=== PATIENT | male | born 1960 | race Caucasian/White ===

== ENCOUNTER 2019-12-03 14:00 | Emergency (ER) | payer SELFPAY ==
[~2019-12-03] VITALS: Ht 175.3 cm; Wt 81.8 kg
[2019-12-03 14:33] VITALS: Ht 175.3 cm; Wt 81.8 kg
[2019-12-03 15:16] VITALS: BP 146/96
== END 2019-12-03 15:18 | disposition home or self-care (01) ==
LOC: D.ER 14:00
DX: F15.10 Other stimulant abuse, uncomplicated (principal); F41.9 Anxiety disorder, unspecified; F60.3 Borderline personality disorder

== ENCOUNTER 2020-03-22 10:20 | Emergency (ER) | payer SELFPAY ==
[2020-03-22 10:32] VITALS: Ht 175.3 cm
[2020-03-22] MEDS ORDERED: VENTOLIN HFA [SP8 GM INH (11:29)
[2020-03-22 19:22] VITALS: BP 132/93
== END 2020-03-22 11:50 | disposition home or self-care (01) ==
LOC: D.ER 10:20
DX: R07.89 Other chest pain (principal); R05 Cough; M54.6 Pain in thoracic spine

== ENCOUNTER 2020-04-25 01:29 | Emergency (ER) | payer SELFPAY ==
[~2020-04-25] VITALS: Ht 175.3 cm; Wt 90.9 kg
[~2020-04-25 01:29] MED LIST: VENTOLIN HFA [SP8 GM INH
[2020-04-25 01:47] VITALS: Ht 175.3 cm; Wt 90.9 kg
[2020-04-25 02:00] LABS: BASOPHILS 0.2 % (0-2); EOSINOPHILS 2.2 % (0-7); HEMATOCRIT 41.2 % (42.0-54.0); IMMATURE GRANULOCYTES 0.2 % (0-5); LYMPHOCYTES 36.3 % (15-50); MCH 31.8 pg (26.0-34.0); MCV 93.6 fL (80.0-100.0); MEAN PLATELET VOLUME 9.8 fL (7.4-10.4); MONOCYTES 8.8 % (2-11); NEUTROPHILS 52.3 % (40-80); PLATELET COUNT 195 10x3/uL (130-400); RDW 13.6 % (11.5-14.5); WBC 4.5 10x3/uL (4.8-10.8)
[2020-04-25 02:12] LABS: CALC OSMOLALITY 264 mosm/kg (275-300); CALCIUM 8.9 mg/dL (8.5-10.1); CARBON DIOXIDE 27.9 mmol/L (21.0-32.0); CHLORIDE - SERUM 99 mmol/L (98-107); GLUCOSE 101 mg/dL (74-106); POTASSIUM - SERUM 3.6 mmol/L (3.5-5.1); SODIUM 133 mmol/L (136-145); UREA NITROGEN 9 mg/dL (7-18); eGFR NON AFRICAN AMERICAN 81 mL/min (90-120)
[2020-04-25 02:20] LABS: ALBUMIN 3.7 g/dL (3.4-5.0); ALKALINE PHOSPHATASE 140 U/L (30-120); ALT (SGPT) 78 U/L (10-68); BILIRUBIN - TOTAL 0.27 mg/dL (0.2-1.3); MAGNESIUM - SERUM 2.1 mg/dL (1.8-2.4)
[2020-04-25 02:30] LABS: BILIRUBIN NEGATIVE (NEGATIVE); KETONE NEGATIVE (NEGATIVE); NITRITE NEGATIVE (NEGATIVE); UROBILINOGEN NORMAL mg/dL (< 2)
[2020-04-25 02:41] LABS: UDS - AMPHET POSITIVE QUAL (NEGATIVE); UDS - BARB NEGATIVE QUAL (NEGATIVE); UDS - BENZO NEGATIVE QUAL (NEGATIVE); UDS - COCAINE NEGATIVE QUAL (NEGATIVE); UDS - OPIATE NEGATIVE QUAL (NEGATIVE); UDS - PCP NEGATIVE QUAL (NEGATIVE); UDS - THC NEGATIVE QUAL (NEGATIVE)
[2020-04-25 05:16] VITALS: BP 148/87
== END 2020-04-25 05:20 | disposition home or self-care (01) ==
LOC: D.ER 01:29
PROVIDERS: Emergency Medicine
DX: F10.10 Alcohol abuse, uncomplicated (principal); Y90.0 Blood alcohol level of less than 20 mg/100 ml; F60.3 Borderline personality disorder; F15.10 Other stimulant abuse, uncomplicated

== ENCOUNTER 2020-05-02 12:45 | Emergency (ER) | payer SELFPAY ==
[~2020-05-02] VITALS: Ht 175.3 cm; Wt 113.6 kg
[2020-05-02 12:59] VITALS: Ht 175.3 cm; Wt 113.6 kg
[2020-05-02 13:22] LABS: BILIRUBIN NEGATIVE (NEGATIVE); KETONE NEGATIVE (NEGATIVE); NITRITE NEGATIVE (NEGATIVE); UROBILINOGEN NORMAL mg/dL (< 2)
[2020-05-02 13:23] LABS: BACTERIA FEW HPF (NONE SEEN); WHITE CELLS - URINE 0-5 HPF (0-1)
[2020-05-02 13:30] LABS: UDS - AMPHET POSITIVE QUAL (NEGATIVE); UDS - BARB NEGATIVE QUAL (NEGATIVE); UDS - BENZO NEGATIVE QUAL (NEGATIVE); UDS - COCAINE NEGATIVE QUAL (NEGATIVE); UDS - OPIATE NEGATIVE QUAL (NEGATIVE); UDS - PCP NEGATIVE QUAL (NEGATIVE); UDS - THC NEGATIVE QUAL (NEGATIVE)
[2020-05-02 13:38] LABS: BASOPHILS 0.4 % (0-2); CALC OSMOLALITY 268 mosm/kg (275-300); CALCIUM 9.2 mg/dL (8.5-10.1); CARBON DIOXIDE 20.5 mmol/L (21.0-32.0); CHLORIDE - SERUM 98 mmol/L (98-107); CREATININE - SERUM 1.2 mg/dL (0.6-1.3); EOSINOPHILS 1.7 % (0-7); GLUCOSE 138 mg/dL (74-106); HEMOGLOBIN 14.1 g/dL (13.5-17.5); IMMATURE GRANULOCYTES 0.2 % (0-5); INR 0.98 (0.85-1.17); LYMPHOCYTES 44.1 % (15-50); MCH 31.5 pg (26.0-34.0); MCHC 34.4 g/dL (31.0-37.0); MCV 91.7 fL (80.0-100.0); MEAN PLATELET VOLUME 10.5 fL (7.4-10.4); MONOCYTES 11.1 % (2-11); NEUTROPHILS 42.5 % (40-80); POTASSIUM - SERUM 3.4 mmol/L (3.5-5.1); RBC 4.47 10x6/uL (4.20-6.10); RDW 13.4 % (11.5-14.5); SODIUM 134 mmol/L (136-145); UREA NITROGEN 11 mg/dL (7-18); WBC 4.8 10x3/uL (4.8-10.8); eGFR NON AFRICAN AMERICAN 66 mL/min (90-120)
[2020-05-02 13:40] LABS: PLATELET COUNT 241 10x3/uL (130-400)
[2020-05-02 13:52] LABS: ALBUMIN 3.8 g/dL (3.4-5.0); ALKALINE PHOSPHATASE 141 U/L (30-120); ALT (SGPT) 78 U/L (10-68); BILIRUBIN - TOTAL 0.28 mg/dL (0.2-1.3); CKMB 13.9 U/L (0.0-3.6); CREATINE KINASE 547 UL (21-232); PROTEIN - SERUM 7.9 g/dL (6.4-8.2); TROPONIN-I < 0.017 ng/mL (0.000-0.060)
[2020-05-02 17:29] VITALS: BP 153/113
== END 2020-05-02 17:30 | disposition home or self-care (01) ==
LOC: D.ER 12:45
PROVIDERS: Family Medicine
DX: F15.129 Other stimulant abuse with intoxication, unspecified (principal); R07.9 Chest pain, unspecified

== ENCOUNTER 2020-05-07 11:27 | Emergency (ER) | payer SELFPAY ==
[~2020-05-07] VITALS: Ht 175.3 cm; Wt 90.9 kg
[2020-05-07 11:30] VITALS: BP 161/91; Ht 175.3 cm; Wt 90.9 kg
[2020-05-07 12:31] LABS: NITRITE NEGATIVE (NEGATIVE)
[2020-05-07 12:32] LABS: BILIRUBIN NEGATIVE (NEGATIVE); KETONE NEGATIVE (NEGATIVE); UROBILINOGEN NORMAL mg/dL (< 2)
[2020-05-07 12:41] LABS: UDS - AMPHET POSITIVE QUAL (NEGATIVE); UDS - BARB NEGATIVE QUAL (NEGATIVE); UDS - BENZO NEGATIVE QUAL (NEGATIVE); UDS - COCAINE NEGATIVE QUAL (NEGATIVE); UDS - OPIATE NEGATIVE QUAL (NEGATIVE); UDS - PCP NEGATIVE QUAL (NEGATIVE); UDS - THC POSITIVE QUAL (NEGATIVE)
[2020-05-07 13:39] LABS: BASOPHILS 0.4 % (0-2); EOSINOPHILS 0.6 % (0-7); HEMATOCRIT 42.9 % (42.0-54.0); HEMOGLOBIN 14.8 g/dL (13.5-17.5); IMMATURE GRANULOCYTES 0.2 % (0-5); LYMPHOCYTES 17.8 % (15-50); MCH 32.2 pg (26.0-34.0); MCHC 34.5 g/dL (31.0-37.0); MCV 93.5 fL (80.0-100.0); MONOCYTES 8.2 % (2-11); NEUTROPHILS 72.8 % (40-80); PLATELET COUNT 214 10x3/uL (130-400); RBC 4.59 10x6/uL (4.20-6.10); RDW 13.6 % (11.5-14.5); WBC 5.1 10x3/uL (4.8-10.8)
[2020-05-07 13:50] LABS: ANION GAP 10.4 mmol/L (8-16); CALCIUM 9.2 mg/dL (8.5-10.1); CARBON DIOXIDE 30.7 mmol/L (21.0-32.0); CREATININE - SERUM 1.1 mg/dL (0.6-1.3); POTASSIUM - SERUM 4.1 mmol/L (3.5-5.1)
[2020-05-07 13:56] LABS: BILIRUBIN - TOTAL 0.37 mg/dL (0.2-1.3); MAGNESIUM - SERUM 2.1 mg/dL (1.8-2.4); PROTEIN - SERUM 8.1 g/dL (6.4-8.2)
== END 2020-05-07 15:38 | disposition home or self-care (01) ==
LOC: D.ER 11:27
PROVIDERS: Family Medicine
DX: F41.9 Anxiety disorder, unspecified (principal)

== ENCOUNTER 2020-12-27 18:17 | Emergency (ER) | payer SELFPAY ==
[~2020-12-27] VITALS: Ht 175.3 cm; Wt 97.7 kg
[2020-12-27 18:30] VITALS: Ht 175.3 cm; Wt 97.7 kg
[2020-12-27 18:54] LABS: BASOPHILS 1.1 % (0-2); EOSINOPHILS 1.8 % (0-7); HEMATOCRIT 40.3 % (42.0-54.0); HEMOGLOBIN 13.4 g/dL (13.5-17.5); LYMPHOCYTES 38.2 % (15-50); MCH 30.7 pg (26.0-34.0); MCHC 33.3 g/dL (31.0-37.0); MCV 92.2 fL (80.0-100.0); MONOCYTES 8.2 % (2-11); NEUTROPHILS 50.7 % (40-80); RBC 4.37 10x6/uL (4.20-6.10); RDW 13.6 % (11.5-14.5); WBC 4.4 10x3/uL (4.8-10.8)
[2020-12-27 18:58] LABS: PLATELET COUNT 240 10x3/uL (130-400)
[2020-12-27 19:11] LABS: CALC OSMOLALITY 273 mosm/kg (275-300); CALCIUM 8.2 mg/dL (8.5-10.1); CARBON DIOXIDE 24.7 mmol/L (21.0-32.0); CHLORIDE - SERUM 103 mmol/L (98-107); CREATININE - SERUM 0.7 mg/dL (0.6-1.3); GLUCOSE 113 mg/dL (74-106); POTASSIUM - SERUM 3.8 mmol/L (3.5-5.1); SODIUM 137 mmol/L (136-145); UREA NITROGEN 10 mg/dL (7-18); eGFR NON AFRICAN AMERICAN > 90 mL/min (90-120)
[2020-12-27 19:16] LABS: ALBUMIN 3.7 g/dL (3.4-5.0); ALKALINE PHOSPHATASE 119 U/L (30-120); ALT (SGPT) 95 U/L (10-68); BILIRUBIN - TOTAL 0.31 mg/dL (0.2-1.3); MAGNESIUM - SERUM 2.2 mg/dL (1.8-2.4); PROTEIN - SERUM 7.7 g/dL (6.4-8.2)
[2020-12-27 19:25] LABS: BILIRUBIN NEGATIVE (NEGATIVE); KETONE NEGATIVE (NEGATIVE); NITRITE NEGATIVE (NEGATIVE); UROBILINOGEN NORMAL mg/dL (< 2)
[2020-12-27 19:30] LABS: BACTERIA FEW HPF (NONE SEEN); SQUAMOUS EPITHELIAL NONE SEEN HPF (0-4); WHITE CELLS - URINE 0-5 HPF (0-1)
[2020-12-27 19:34] LABS: UDS - AMPHET POSITIVE QUAL (NEGATIVE); UDS - BARB NEGATIVE QUAL (NEGATIVE); UDS - BENZO NEGATIVE QUAL (NEGATIVE); UDS - COCAINE NEGATIVE QUAL (NEGATIVE); UDS - OPIATE POSITIVE QUAL (NEGATIVE); UDS - PCP NEGATIVE QUAL (NEGATIVE); UDS - THC POSITIVE QUAL (NEGATIVE)
[2020-12-28 04:46] VITALS: BP 155/89
== END 2020-12-28 04:47 | disposition home or self-care (01) ==
LOC: D.ER 18:17
PROVIDERS: Family Medicine
DX: R45.850 Homicidal ideations (principal); R45.851 Suicidal ideations; F15.10 Other stimulant abuse, uncomplicated; R74.01 Elevation of levels of liver transaminase levels; F11.10 Opioid abuse, uncomplicated; F10.10 Alcohol abuse, uncomplicated; Y90.6 Blood alcohol level of 120-199 mg/100 ml; I10 Essential (primary) hypertension; Z72.0 Tobacco use

== ENCOUNTER 2021-01-08 04:41 | Emergency (ER) | payer SELFPAY ==
[~2021-01-08] VITALS: Ht 175.3 cm; Wt 86.4 kg
[2021-01-08 04:42] VITALS: Ht 175.3 cm; Wt 86.4 kg
[2021-01-08 05:36] LABS: BASOPHILS 0.8 % (0-2); EOSINOPHILS 0.4 % (0-7); HEMATOCRIT 40.6 % (42.0-54.0); HEMOGLOBIN 13.5 g/dL (13.5-17.5); LYMPHOCYTES 26.5 % (15-50); MCH 30.8 pg (26.0-34.0); MCHC 33.4 g/dL (31.0-37.0); MCV 92.3 fL (80.0-100.0); MEAN PLATELET VOLUME 8.6 fL (7.4-10.4); MONOCYTES 8.9 % (2-11); NEUTROPHILS 63.4 % (40-80); PLATELET COUNT 213 10x3/uL (130-400); RBC 4.39 10x6/uL (4.20-6.10); RDW 13.7 % (11.5-14.5); WBC 5.2 10x3/uL (4.8-10.8)
[2021-01-08 05:50] LABS: CALC OSMOLALITY 279 mosm/kg (275-300); CALCIUM 9.3 mg/dL (8.5-10.1); CARBON DIOXIDE 27.2 mmol/L (21.0-32.0); CHLORIDE - SERUM 103 mmol/L (98-107); CREATININE - SERUM 0.9 mg/dL (0.6-1.3); GLUCOSE 102 mg/dL (74-106); POTASSIUM - SERUM 3.5 mmol/L (3.5-5.1); SODIUM 141 mmol/L (136-145); UREA NITROGEN 9 mg/dL (7-18); eGFR NON AFRICAN AMERICAN > 90 mL/min (90-120)
[2021-01-08 06:15] LABS: BILIRUBIN NEGATIVE (NEGATIVE); KETONE NEGATIVE (NEGATIVE); NITRITE NEGATIVE (NEGATIVE); UROBILINOGEN NORMAL mg/dL (< 2)
[2021-01-08 06:16] LABS: ALBUMIN 4.2 g/dL (3.4-5.0); ALKALINE PHOSPHATASE 112 U/L (30-120); ALT (SGPT) 93 U/L (10-68); BILIRUBIN - TOTAL 0.61 mg/dL (0.2-1.3); CKMB 16.3 U/L (0.0-3.6); CREATINE KINASE 700 UL (21-232); MAGNESIUM - SERUM 2.1 mg/dL (1.8-2.4); PRO BNP 128 pg/mL (0-125); PROTEIN - SERUM 8.1 g/dL (6.4-8.2); THYROID STIMULATING HORMONE 5.99 uIU/mL (0.36-3.74); TROPONIN-I < 0.017 ng/mL (0.000-0.060)
[2021-01-08 06:26] LABS: UDS - AMPHET POSITIVE QUAL (NEGATIVE); UDS - BARB NEGATIVE QUAL (NEGATIVE); UDS - BENZO POSITIVE QUAL (NEGATIVE); UDS - COCAINE NEGATIVE QUAL (NEGATIVE); UDS - OPIATE NEGATIVE QUAL (NEGATIVE); UDS - PCP NEGATIVE QUAL (NEGATIVE); UDS - THC POSITIVE QUAL (NEGATIVE)
[2021-01-08 08:16] VITALS: BP 134/90
== END 2021-01-08 08:18 | disposition home or self-care (01) ==
LOC: D.ER 04:41
PROVIDERS: Family Medicine
DX: R07.89 Other chest pain (principal); F19.10 Other psychoactive substance abuse, uncomplicated; R79.89 Other specified abnormal findings of blood chemistry; I10 Essential (primary) hypertension; R51.9 Headache, unspecified

== ENCOUNTER 2021-01-15 16:54 | Observation (INO) | payer SELFPAY ==
[~2021-01-15] VITALS: Ht 175.3 cm; Wt 113.6 kg
[2021-01-15 18:01] LABS: BASOPHILS 0.8 % (0-2); HEMATOCRIT 38.7 % (42.0-54.0); LYMPHOCYTES 19.8 % (15-50); MCHC 33.7 g/dL (31.0-37.0); MCV 92.1 fL (80.0-100.0); MEAN PLATELET VOLUME 8.4 fL (7.4-10.4); MONOCYTES 12.1 % (2-11); NEUTROPHILS 66.3 % (40-80); PLATELET COUNT 205 10x3/uL (130-400); WBC 4.5 10x3/uL (4.8-10.8)
[2021-01-15 18:24] LABS: ALBUMIN 3.7 g/dL (3.4-5.0); ALKALINE PHOSPHATASE 92 U/L (30-120); ALT (SGPT) 86 U/L (10-68); BILIRUBIN - TOTAL 0.43 mg/dL (0.2-1.3); CALC OSMOLALITY 278 mosm/kg (275-300); CALCIUM 8.9 mg/dL (8.5-10.1); CHLORIDE - SERUM 103 mmol/L (98-107); CKMB 11.1 U/L (0.0-3.6); CREATINE KINASE 445 UL (21-232); CREATININE - SERUM 0.9 mg/dL (0.6-1.3); GLUCOSE 101 mg/dL (74-106); PROTEIN - SERUM 7.8 g/dL (6.4-8.2); SODIUM 140 mmol/L (136-145); TROPONIN-I < 0.017 ng/mL (0.000-0.060); UREA NITROGEN 12 mg/dL (7-18); eGFR NON AFRICAN AMERICAN > 90 mL/min (90-120)
--- NOTE | 2021-01-15 19:18 | NUR ---
PT REPORT GIVEN TO JÚNIOR AGUAYO
[2021-01-15 19:20] LABS: BACTERIA FEW HPF (<MOD); BILIRUBIN NEGATIVE (NEGATIVE); KETONE NEGATIVE mg/dL (< 1+); NITRITE NEGATIVE (NEGATIVE); UROBILINOGEN 4 mg/dL (< 2); WHITE CELLS - URINE 1 HPF (0-1)
[2021-01-15 19:30] VITALS: BP 148/61
[2021-01-15 19:31] LABS: UDS - AMPHET POSITIVE QUAL (NEGATIVE); UDS - BARB NEGATIVE QUAL (NEGATIVE); UDS - BENZO NEGATIVE QUAL (NEGATIVE); UDS - COCAINE NEGATIVE QUAL (NEGATIVE); UDS - OPIATE NEGATIVE QUAL (NEGATIVE); UDS - PCP NEGATIVE QUAL (NEGATIVE); UDS - THC POSITIVE QUAL (NEGATIVE)
[2021-01-15 20:31] VITALS: BP 137/94
[2021-01-15 21:30] VITALS: BP 144/92
[2021-01-15 21:47] LABS: APTT 29.8 SECONDS (22.8-39.4); INR 1.17 (0.85-1.17); PROTIME 13.8 SECONDS (11.6-15.0)
[2021-01-15 21:48] LABS: D-DIMER-QUANTITATIVE 0.87 ug/mLFEU (0.20-0.54)
[2021-01-15 22:30] VITALS: BP 142/87
[2021-01-15 23:30] VITALS: BP 129/88
[2021-01-16] VITALS (11 sets, daily range): BP systolic 99–133; BP diastolic 67–89; Ht 175.3 cm; Wt 113.6 kg
--- NOTE | 2021-01-16 07:00 | NUR ---
0700: RECEIVED REPORT FROM OLIVIER SCOTT. PT A&OX3, GCS 15, RR EVEN & UNLABORED, NO S/S OF ACUTE DISTRESS NOTED AT THIS TIME, PT STATES NO NEEDS OR CONCERNS, JUST ASKING ABOUT WHEN TO GO TO ROOM AND GET D/C FROM HOSPITAL. WILL CONTINUE TO MONITOR PT AT THIS TIME. 0800: PT GIVEN BREAKFAST TRAY. NO OTHER NEEDS STATED AT THIS TIME, WILL CONTINUE TO MONITOR. 0900: PT RESTING IN ROOM, CALL RN TO BEDSIDE, ASKED ABOUT A PHONE TOOTH CUTTER. TOOTH CUTTER PROVIDED, PT ROOM PHONE PLACED WITHIN PT REACH FOR USE. NO S/S OF ACUTE DISTRESS NOTED AT THIS TIME, WILL CONTINUE TO MONITOR. 0945: PT ASKING ABOUT SNACKS, SNACKS PROVIDED. 1000: PT RESTING IN ROOM AT THIS TIME, NO S/S OF ACUTE DISTRESS NOTED, CALL LIGHT WITHIN REACH, WILL CONTINUE TO MONITOR. 1100: PT CALLED RN TO BEDSIDE, NEEDED UP TO VOID AT THIS TIME. PT AMBULATES WITH A STEADY GAIT. NO S/S OF ACUTE DISTRESS NOTED AT THIS TIME, WILL CONTINUE TO MONITOR.
[2021-01-16 07:22] LABS: BASOPHILS 0.5 % (0-2); EOSINOPHILS 1.9 % (0-7); HEMOGLOBIN 13.5 g/dL (13.5-17.5); LYMPHOCYTES 25.6 % (15-50); MCH 31.3 pg (26.0-34.0); MCHC 33.8 g/dL (31.0-37.0); MCV 92.6 fL (80.0-100.0); MEAN PLATELET VOLUME 8.3 fL (7.4-10.4); PLATELET COUNT 216 10x3/uL (130-400); RBC 4.32 10x6/uL (4.20-6.10); RDW 13.5 % (11.5-14.5); WBC 4.2 10x3/uL (4.8-10.8)
[2021-01-16 07:54] LABS: ALBUMIN 3.5 g/dL (3.4-5.0); ALKALINE PHOSPHATASE 95 U/L (30-120); ALT (SGPT) 82 U/L (10-68); BILIRUBIN - TOTAL 0.33 mg/dL (0.2-1.3); CALC OSMOLALITY 278 mosm/kg (275-300); CALCIUM 8.8 mg/dL (8.5-10.1); CARBON DIOXIDE 28.3 mmol/L (21.0-32.0); CHLORIDE - SERUM 104 mmol/L (98-107); CREATININE - SERUM 0.8 mg/dL (0.6-1.3); GLUCOSE 95 mg/dL (74-106); MAGNESIUM - SERUM 2.2 mg/dL (1.8-2.4); PROTEIN - SERUM 7.5 g/dL (6.4-8.2); SODIUM 140 mmol/L (136-145); TROPONIN-I < 0.017 ng/mL (0.000-0.060); UREA NITROGEN 12 mg/dL (7-18); eGFR NON AFRICAN AMERICAN > 90 mL/min (90-120)
[2021-01-16 07:57] LABS: POTASSIUM - SERUM 3.5 mmol/L (3.5-5.1)
[2021-01-17 09:12] LABS: HEPATITIS C ANTIBODY >11.0 S/CO RAT (0.0-0.9)
--- NOTE | 2021-01-18 13:07 | EC ---
PATIENT:CHANTELLE GUZMAN DATE OF SERVICE: 01/15/21 SEX: M MEDICAL RECORD: [id number] DATE OF : 62 LOCATION:[place] [id number] AGE OF PATIENT: 60 ADMISSION DATE: 01/15/21 REFERRING PHYSICIAN: INTERPRETING PHYSICIAN: JLEANI MIRZA MD ECHOCARDIOGRAM REPORT ECHO CHARGES 4 ECHO COMPLETE Date: 01/16/21 CLINICAL DIAGNOSIS: CP, IVDU ECHOCARDIOGRAPHIC MEASUREMENTS (adult normal given) AC root (d.<3.7cm) 3.4 cm LV Septum d (<1.2 cm> 0.7 cm Valve Excursion 2.1 cm LV Septum (systole) 0.8 cm Left Atria (s.<4.0cm> 3.2 cm LVPW d(<1.2cm) 0.9 cm RV (d.<2.3cm) 3.1 cm LVPW (sytole) 1.2 cm LV diastole(<5.6CM) 4.2 cm MV E-F(>70mm/sec) cm LV systole 3.0 cm LVOT Diameter 1.9 cm MV exc.(>10mm) 1.8 cm Est.ejection fraction (50-75%) % DOPPLER: LVIT cm/sec A 60 cm/sec E 53 cm/sec LA cm/sec RVSP 23 mmHg LVOT 83 cm/sec AOP1/2T m/s Asc. 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 Mirza TAPE# Pericardial Effusion N DATE OF SERVICE: CLINICAL INDICATION: Chest pain. INTERPRETATION: Normal left ventricular chamber size and contractile function with ejection fraction of 55%. FINDINGS: Left atrial chamber appears normal. Right atrium and right ventricular chamber size and function appears normal. Aortic valve appears normal. No aortic regurgitation/stenosis. Mitral valve appears normal. No ECHOCARDIOGRAM REPORT [id number] CHANTELLE GUZMAN mitral regurgitation. Tricuspid valve appears normal. Trace tricuspid regurgitation. Pulmonic valve appears normal. No pulmonary regurgitation. No pericardial effusion visualized. IMPRESSION: Normal left ventricular chamber size and contractile function, ejection fraction of 55%. TRANSINT:[id number] Voice Confirmation ID: [id number] DOCUMENT ID: [id number] JELANI MIRZA MD at 1307 CC: [id number] DICTATION DATE: 01/17/21 1151 WELLNESS PROGRAM MANAGER: 01/17/21 1253 DIS IN 01/16/21 [place] [id number] [place] [id number]
== END 2021-01-16 14:39 | disposition home or self-care (01) ==
LOC: D.ER 16:54 → D.EDHOLD 18:57 → OBSVTIME 18:57 → D.EDHOLD 18:57
PROVIDERS: Family Medicine; ADMIT Family Medicine; ATTEND Family Medicine
DX: F15.988 Other stimulant use, unspecified with other stimulant-induced disorder (principal); I73.89 Other specified peripheral vascular diseases; I10 Essential (primary) hypertension; E87.6 Hypokalemia; D64.9 Anemia, unspecified; F17.203 Nicotine dependence unspecified, with withdrawal; F12.90 Cannabis use, unspecified, uncomplicated

== ENCOUNTER 2021-01-27 20:21 | Emergency (ER) | payer SELFPAY ==
[~2021-01-27] VITALS: Ht 175.3 cm; Wt 86.4 kg
[2021-01-27 20:37] VITALS: Ht 175.3 cm; Wt 86.4 kg
[2021-01-27 22:50] LABS: BASOPHILS 0.7 % (0-2); EOSINOPHILS 0.8 % (0-7); HEMATOCRIT 40.6 % (42.0-54.0); HEMOGLOBIN 13.6 g/dL (13.5-17.5); LYMPHOCYTES 21.7 % (15-50); MCH 30.5 pg (26.0-34.0); MCHC 33.5 g/dL (31.0-37.0); MCV 91.2 fL (80.0-100.0); MEAN PLATELET VOLUME 8.1 fL (7.4-10.4); MONOCYTES 7.7 % (2-11); NEUTROPHILS 69.1 % (40-80); RBC 4.46 10x6/uL (4.20-6.10); RDW 13.7 % (11.5-14.5); WBC 6.2 10x3/uL (4.8-10.8)
[2021-01-27 22:53] LABS: CALC OSMOLALITY 278 mosm/kg (275-300); CARBON DIOXIDE 27.9 mmol/L (21.0-32.0); CHLORIDE - SERUM 104 mmol/L (98-107); CREATININE - SERUM 0.9 mg/dL (0.6-1.3); GLUCOSE 105 mg/dL (74-106); POTASSIUM - SERUM 3.1 mmol/L (3.5-5.1); SODIUM 140 mmol/L (136-145); UREA NITROGEN 13 mg/dL (7-18); eGFR NON AFRICAN AMERICAN > 90 mL/min (90-120)
[2021-01-27 22:56] LABS: PLATELET COUNT 285 10x3/uL (130-400)
[2021-01-27 23:22] LABS: ALKALINE PHOSPHATASE 115 U/L (30-120); ALT (SGPT) 87 U/L (10-68); BILIRUBIN - TOTAL 0.47 mg/dL (0.2-1.3); CREATINE KINASE 711 UL (21-232); MAGNESIUM - SERUM 2.5 mg/dL (1.8-2.4); PROTEIN - SERUM 8.3 g/dL (6.4-8.2)
[2021-01-27 23:26] LABS: TROPONIN-I < 0.017 ng/mL (0.000-0.060)
[2021-01-27 23:41] LABS: CKMB 17.9 U/L (0.0-3.6)
[2021-01-28 00:43] VITALS: BP 155/79
== END 2021-01-28 00:43 | disposition home or self-care (01) ==
LOC: D.ER 20:21
PROVIDERS: Family Medicine
DX: R06.02 Shortness of breath (principal); F41.9 Anxiety disorder, unspecified; F15.10 Other stimulant abuse, uncomplicated; M62.82 Rhabdomyolysis; E87.6 Hypokalemia; R55 Syncope and collapse

== ENCOUNTER 2021-02-01 06:24 | Emergency (ER) | payer SELFPAY ==
[~2021-02-01] VITALS: Ht 175.3 cm; Wt 95.5 kg
[2021-02-01 06:26] VITALS: Ht 175.3 cm; Wt 95.5 kg
[2021-02-01] MEDS ORDERED: LISINOPRIL20 MG PO ×2 (06:29→06:42)
[2021-02-01] MEDS ORDERED: OMEPRAZOLE40 MG PO (06:31)
[2021-02-01] MEDS ORDERED: PROTONIX40 MG PO (06:42)
[2021-02-01 07:31] LABS: EOSINOPHILS 2.4 % (0-7); HEMATOCRIT 41.1 % (42.0-54.0); HEMOGLOBIN 13.7 g/dL (13.5-17.5); LYMPHOCYTES 33.1 % (15-50); MCH 30.7 pg (26.0-34.0); MCHC 33.3 g/dL (31.0-37.0); MCV 92.4 fL (80.0-100.0); MEAN PLATELET VOLUME 8.6 fL (7.4-10.4); MONOCYTES 10.1 % (2-11); NEUTROPHILS 53.4 % (40-80); PLATELET COUNT 251 10x3/uL (130-400); RBC 4.45 10x6/uL (4.20-6.10); RDW 14.1 % (11.5-14.5); WBC 3.7 10x3/uL (4.8-10.8)
[2021-02-01 07:39] LABS: CALC OSMOLALITY 275 mosm/kg (275-300); CALCIUM 9.1 mg/dL (8.5-10.1); CARBON DIOXIDE 31.6 mmol/L (21.0-32.0); CHLORIDE - SERUM 103 mmol/L (98-107); CREATININE - SERUM 0.8 mg/dL (0.6-1.3); GLUCOSE 104 mg/dL (74-106); POTASSIUM - SERUM 4.1 mmol/L (3.5-5.1); SODIUM 138 mmol/L (136-145); UREA NITROGEN 12 mg/dL (7-18); eGFR NON AFRICAN AMERICAN > 90 mL/min (90-120)
[2021-02-01 07:46] LABS: AMORPHOUS SEDIMENT MOD LPF (<FEW); BACTERIA FEW HPF (<MOD); BILIRUBIN NEGATIVE (NEGATIVE); GRANULAR CAST 3 LPF (0-1); KETONE NEGATIVE mg/dL (< 1+); NITRITE NEGATIVE (NEGATIVE); UROBILINOGEN NORMAL mg/dL (< 2); WHITE CELLS - URINE <1 HPF (0-1)
[2021-02-01 07:56] LABS: UDS - AMPHET POSITIVE QUAL (NEGATIVE); UDS - BARB NEGATIVE QUAL (NEGATIVE); UDS - BENZO NEGATIVE QUAL (NEGATIVE); UDS - COCAINE NEGATIVE QUAL (NEGATIVE); UDS - OPIATE NEGATIVE QUAL (NEGATIVE); UDS - PCP NEGATIVE QUAL (NEGATIVE); UDS - THC NEGATIVE QUAL (NEGATIVE)
[2021-02-01 07:58] LABS: SARS-CoV-2 ANTIGEN NEGATIVE- SARS-COV-2 (NEGATIVE)
[2021-02-01 08:05] LABS: ALBUMIN 3.6 g/dL (3.4-5.0); ALKALINE PHOSPHATASE 118 U/L (30-120); ALT (SGPT) 98 U/L (10-68); BILIRUBIN - TOTAL 0.31 mg/dL (0.2-1.3); CREATINE KINASE 309 UL (21-232); LIPASE 120 U/L (73-393); MAGNESIUM - SERUM 2.6 mg/dL (1.8-2.4); PRO BNP 22 pg/mL (0-125); PROTEIN - SERUM 7.5 g/dL (6.4-8.2)
[2021-02-01 08:06] LABS: TROPONIN-I < 0.017 ng/mL (0.000-0.060)
[2021-02-01 08:07] LABS: CKMB 9.2 U/L (0.0-3.6)
[2021-02-01 08:43] VITALS: BP 138/86
== END 2021-02-01 08:45 | disposition home or self-care (01) ==
LOC: D.ER 06:24
PROVIDERS: Family Medicine
DX: R07.9 Chest pain, unspecified (principal); I10 Essential (primary) hypertension; F15.90 Other stimulant use, unspecified, uncomplicated; Z72.0 Tobacco use